=== PATIENT | female | born 1940 | race Caucasian/White ===

== ENCOUNTER 2019-03-01 13:05 | Emergency (ER) | payer OTHER ==
--- NOTE | 2019-03-01 14:10 | EDPHY ---
General Time Seen by Provider: 03/01/19 13:55 Narrative: CLINICAL IMPRESSION: Bleeding external hemorrhoid, urinary frequency ASSESSMENT/PLAN: Very pleasant 79-year-old female visiting our area from [place] for [facility] graduation, presents to the emergency department with concerns about rectal bleeding that she began noticing today. She also reports some urinary frequency overnight. On exam, patient has a small bleeding external hemorrhoid. She has no palpable rectal mass. Abdomen is soft without focal peritoneal findings or suggestion of acute surgical process. She reports no associated nausea, vomiting, diarrhea, bloody stools, lightheadedness, syncope or history of GI bleeding. I do not see evidence of UTI. Unclear if hematuria found in urine is secondary to bleeding from a hemorrhoid. We discussed over- the-counter therapies and PCP follow-up upon returning home. Avoidance of straining using the restroom and treatment for constipation. Warning signs return to ED sooner discussed in discharge. DIFFERENTIAL DX: Differential includes but not limited to bleeding hemorrhoids, lower GI bleed, urinary tract infection, hemodynamic instability ED PROCEDURES: See lab and/or imaging results below ED COURSE: Hematuria. Patient advised to follow up with PCP in 1 week to ensure this clears CHIEF COMPLAINT: Rectal bleeding, urinary frequency HPI: Very pleasant 79-year-old female presents to the emergency department with concerns of rectal bleeding. Patient is visiting from [place], here to see a family member graduate [facility]. Today she began noticing some blood in her underwear and believes this is coming from her rectum. She has not noted bloody stools. She denies abdominal pain, nausea, vomiting, diarrhea. She has no history of GI bleeding. She reports some urinary frequency overnight but no dysuria. She has no history of chronic urinary tract infection. PAST MEDICAL HISTORY: See nurse triage note See triage summary and nurse notes for addition applicable history Pertinent Past Surgical History: Prior history of colon polyps Social History: Visiting from [place] REVIEW OF SYSTEMS: A full 10 point review of systems was negative except for those mentioned in HPI. PHYSICAL EXAM: General Appearance: Alert, oriented, appropriate, cooperative, NAD, well hydrated, non-toxic appearing, hypertensive, tachycardic, repeat heart rate on my exam is 95, patient admits that she feels very anxious no hypoxia. Respiratory: There are no retractions, lungs are clear to auscultation. Cardiac: Regular rate and rhythm, no murmurs or gallops. Gastrointestinal: Abdomen is soft, nontender, bowel sounds normal, no masses/ hernia, no rigidity, guarding or focal peritoneal findings. Rectal exam shows a external bleeding nonthrombosed hemorrhoid. No palpable rectal mass. No stool in rectal vault Skin: Warm, dry, no rashes, no nodules on palpation. See above MEDICAL DECISION MAKING: Patient was seen independently. Secondary supervising physician at time of evaluation was: Dino Harris. Diagnosis: Bleeding external hemorrhoid, hematuria . New, requires workup Summary: See Assessment and Plan for summary of ED visit Clinical lab tests: ordered / reviewed. Patient Progress: Stable for discharge - History Smoking Status: Never smoked - Objective Vital Signs: Initial Vital Signs Temperature (C) 36.6 C 03/01/19 13:29 Heart Rate 108 H 03/01/19 13:29 Respiratory Rate 16 03/01/19 13:29 Blood Pressure 209/116 H 03/01/19 13:29 O2 Sat (%) 97 03/01/19 13:29 O2 Delivery Mode Room Air Allergies/Adverse Reactions: oxycodone Allergy (Verified 03/01/19 13:28) Home Medications: Medication Instructions Recorded Albuterol 03/01/19 Atorvastatin Calcium 03/01/19 HCTZ (*) 03/01/19 Qvar Redihaler 03/01/19 Laboratory Results: 03/01/19 14:00 Urine Color PALE YELLOW Urine Appearance CLEAR Urine pH 6.0 (5.0-7.5) Ur Specific [place] 1.010 (1.002-1.030) Urine Protein NEGATIVE (NEGATIVE) Urine Ketones TRACE H (NEGATIVE) Urine Blood 3+ H (NEGATIVE) Urine Nitrate NEGATIVE (NEGATIVE) Urine Bilirubin NEGATIVE (NEGATIVE) Urine Urobilinogen NEGATIVE EU EU (0.2-1.0) Ur Leukocyte Esterase NEGATIVE (NEGATIVE) Urine RBC 3-5 /hpf H /hpf (0-3) Urine WBC 1-3 /hpf /hpf (0-3) Ur Epithelial Cells TRACE /lpf /lpf (NONE-1+) Urine Glucose NEGATIVE (NEGATIVE) Departure - Departure Disposition: Home, Routine, Self-Care Clinical Impression: External hemorrhoid, bleeding, Urinary frequency Condition: Good Instructions: Hemorrhoids (ED) Additional Instructions: DISCHARGE INSTRUCTIONS FROM YOUR DOCTOR Thank you for visiting our emergency department today. You were treated by a physician assistant fitness manager today and your case was reviewed with our ED Attending physician. Please keep in mind that discharge from the emergency department does not mean that there is nothing wrong - it simply means that we have not identified an emergency condition that requires further evaluation or treatment in the hospital. You should always plan to follow up with primary care for re- evaluation of your condition in the next 2-3 days. If you have been referred to a specialist, please call as soon as possible (today or tomorrow) to schedule your follow up appointment at the appropriate time. BLEEDING APPEARS TO BE COMING FROM A SMALL EXTERNAL HEMORRHOID. PLEASE AVOID CONSTIPATION AND STRAINING. CONSIDER USING WITCH HI PADS. YOU CAN ALSO DO SOME WARM SOAPY SOAKS. URINE DID NOT APPEAR INFECTED. PLEASE FOLLOW-UP WITH PRIMARY CARE WHEN YOU RETURNS HOME. RETURN TO ED FOR SEVERE OR WORSENING RECTAL BLEEDING, ABDOMINAL PAIN, FEVER, LIGHTHEADEDNESS OR FAINTING, OR ANY OTHER CONCERNS. PLEASE FOLLOW-UP WITH PRIMARY CARE IN 1 WEEK TO ENSURE THAT BLOOD IN HER URINE HAS CLEARED. People present with illnesses and injuries in different ways, and it is always possible that we have missed something. You may always return for re-evaluation if symptoms worsen or if they are not improving or if you develop new/different symptoms. Again, thank you for choosing our emergency department. We hope that you feel better. Referrals: STAN MARTINS [Other] - As per Instructions
[2019-03-01 14:28] VITALS: BP 158/118
== END 2019-03-01 14:29 | disposition home or self-care (01) ==
DX: K64.9 Unspecified hemorrhoids (principal); R35.0 Frequency of micturition; Z87.19 Personal history of other diseases of the digestive system